=== PATIENT | female | born 1935 | race African-American/Black ===

== ENCOUNTER 2019-08-03 22:26 | Inpatient (IN) ==
[2019-08-03] MEDS ORDERED: hydrALAZINE 20 MG/1 ML VIAL IV STA (23:11)
[2019-08-03 23:37] LABS: ABG Base Excess 3.9 MMOL/L (-2.5-2.5); ABG HCO3 27.9 MMOL/L (20-26); ABG Oxygen Saturation 95.3 % (95-100); ABG PCO2 52.4 MM HG (35-48); ABG PH 7.371 (7.35-7.45); ABG PO2 67.1 MM HG (80-95); ABG TCO2 27.1 MMOL/L (23-27); Allen Test Positive
[2019-08-04 00:13] LABS: Basophils # 0.1 10*3/uL (0.0-0.2); Basophils % 0.7 % (0.0-0.8); Eosinophils # 0.3 10*3/uL (0.0-0.87); Eosinophils % 3.7 % (0.00-10.9); Hemoglobin 11.3 GM/DL (12.0-16.0); Immature Granulocytes % 0.6 %; Immature Granulocytes Absolute 0.05 #; Lymphocytes # 0.9 10*3/uL (1.4-4.0); Lymphocytes % 10.1 % (21.3-54.2); Mean Corpuscular HGB Conc 33.2 GM/DL (32-36); Mean Corpuscular Volume 79.4 FL (87-102); Mean Platelet Volume 10.2 FL (9.6-12.0); Monocytes % 8.9 % (1.7-12.7); Platelet Count 253 T/CUMM (130-400); Red Blood Count 4.28 MC/CUMM (3.8-5.5); Red Cell Distribution Width 15.2 % (9.3-17.3); White Blood Count 8.6 T/CUMM (4-12)
[2019-08-04 00:21] LABS: INR 1.1; PT Patient Result 11.6 SECS (9.6-12.2)
[2019-08-04 00:48] LABS: Albumin 2.8 G/DL (3.4-5.0); Bilirubin,Total 0.6 MG/DL (0.2-1.0); Calcium 8.7 MG/DL (8.5-10.1); Osmolality,Calculated 267.5 MOS/KG (273-304); Total Protein 7.1 G/DL (6.4-8.3)
[2019-08-04 01:31] LABS: Apearance,Urine Slightly Hazy (Clear); Bacteria,Urine Many /HPF (Few); Bilirubin,Urine Negative (Negative); Blood, Urine Negative (Negative); Glucose,Urine (UA) 50 mg/dL (Negative); Ketones,Urine 5 mg/dL (Negative); Nitrite,Urine Negative (Negative); Protein,Urine >=500 MG/DL; Squamous Epithelial Cell,Urine Occasional /HPF (0-10); Urine Color Yellow (Yellow); Urine Specific Gravity 1.017 (1.001-1.035); Urine Urobilinogen < 2.0 EU/DL (0.2-1.0)
[2019-08-04 04:10] LABS: ABG Base Excess 3.4 MMOL/L (-2.5-2.5); ABG HCO3 28.9 MMOL/L (20-26); ABG Oxygen Saturation 96.5 % (95-100); ABG PCO2 47.8 MM HG (35-48); ABG PH 7.399 (7.35-7.45); ABG PO2 78.9 MM HG (80-95); ABG TCO2 30.3 MMOL/L (23-27); Allen Test Positive; Pt O2 Delivery Device BIPAP
[2019-08-04] MEDS ORDERED: ONDANSETRON 4 MG/2 ML VIAL IV PRN (04:12)
[2019-08-04] MEDS ORDERED: MORPHINE 4 MG/1 ML VIAL IV PRN (04:12)
[2019-08-04] MEDS ORDERED: ACETAMINOPHEN 325 MG TABLET PO PRN (04:25)
[2019-08-04] MEDS ORDERED: GLUCAGON 1 MG VIAL IM PRN (04:26)
[2019-08-04] MEDS ORDERED: DEXTROSE 10% 250 ML BAG IV PRN (04:26)
[2019-08-04] MEDS: SODIUM CHLORIDE 0.9% 1,000 ML IV SCH (05:39)
[2019-08-04] MEDS ORDERED: AZITHROMYCIN INJ 250 MG in SODIUM CHLORIDE 0.9% 250 ML IV SCH (06:00)
[2019-08-04] MEDS: methylPREDNISolone SOD SUC 40 MG/1 ML VIAL IV SCH ×3 (06:09→20:50)
[2019-08-04] MEDS: AZITHROMYCIN INJ 250 MG in SODIUM CHLORIDE 0.9% 250 ML IV SCH (06:24)
[2019-08-04] MEDS: ALBUTEROL/IPRATROPIUM 3 ML NEB RESP TX SCH ×5 (07:54→23:18)
[2019-08-04] MEDS: INSULIN REGULAR 100 UNIT/ML SUBCUT SCH ×4 (08:23→21:18)
[2019-08-04] MEDS ORDERED: FUROSEMIDE 40 MG/4 ML VIAL IV SCH (09:00)
[2019-08-04] MEDS: ENOXAPARIN 40 MG/0.4 ML SYRINGE SUBCUT SCH (10:55)
[2019-08-04] MEDS: cefTRIAXone 2,000 MG in SYRINGE 1 EACH IV SCH (10:55)
[2019-08-04] MEDS: PANTOPRAZOLE 40 MG TABLET PO SCH (10:58)
[2019-08-04] MEDS: INSULIN GLARGINE 100 UNIT/ML SUBCUT SCH (16:58)
[2019-08-04] MEDS: DORNASE ALFA 2.5 MG/2.5 ML VIAL RESP TX SCH (20:06)
[2019-08-05] MEDS: ALBUTEROL/IPRATROPIUM 3 ML NEB RESP TX SCH ×6 (03:03→23:42)
[2019-08-05] MEDS: methylPREDNISolone SOD SUC 40 MG/1 ML VIAL IV SCH ×3 (05:44→21:30)
[2019-08-05] MEDS: AZITHROMYCIN INJ 250 MG in SODIUM CHLORIDE 0.9% 250 ML IV SCH (05:44)
[2019-08-05 05:49] LABS: Hematocrit 33.5 VOL% (35.7-47.0); Hemoglobin 11.1 GM/DL (12.0-16.0); Immature Granulocytes % 0.5 %; Immature Granulocytes Absolute 0.02 #; Lymphocytes # 0.2 10*3/uL (1.4-4.0); Lymphocytes % 5.4 % (21.3-54.2); Mean Corpuscular HGB Conc 33.1 GM/DL (32-36); Mean Corpuscular Volume 79.8 FL (87-102); Mean Platelet Volume 9.5 FL (9.6-12.0); Monocytes % 2.7 % (1.7-12.7); Neutrophils % 91.4 % (38.7-73.9); Platelet Count 234 T/CUMM (130-400); Red Cell Distribution Width 15.1 % (9.3-17.3); White Blood Count 4.1 T/CUMM (4-12)
[2019-08-05 06:01] LABS: Calcium 8.5 MG/DL (8.5-10.1); Osmolality,Calculated 276.2 MOS/KG (273-304)
[2019-08-05 06:02] LABS: Calcium 8.5 MG/DL (8.5-10.1); Osmolality,Calculated 275.4 MOS/KG (273-304)
[2019-08-05 06:24] LABS: Lymphocytes 1 % (20-55); Platelet Estimate Adequate; Segmented Neutrophils 96 % (50-85); Total Cells Counted 100
[2019-08-05 06:25] LABS: Hypochromasia 1+; Ovalocytes Slight
[2019-08-05] MEDS: SODIUM CHLORIDE 0.9% 1,000 ML IV SCH (08:00)
[2019-08-05] MEDS: INSULIN REGULAR 100 UNIT/ML SUBCUT SCH ×4 (09:43→21:30)
[2019-08-05] MEDS: PANTOPRAZOLE 40 MG TABLET PO SCH (09:43)
[2019-08-05] MEDS: ENOXAPARIN 40 MG/0.4 ML SYRINGE SUBCUT SCH (09:44)
[2019-08-05] MEDS: cefTRIAXone 2,000 MG in SYRINGE 1 EACH IV SCH (09:44)
[2019-08-05] MEDS: DORNASE ALFA 2.5 MG/2.5 ML VIAL RESP TX SCH ×2 (11:36→19:03)
[2019-08-05] MEDS ORDERED: FUROSEMIDE 40 MG/4 ML VIAL IV SCH (15:00)
[2019-08-05] MEDS: INSULIN GLARGINE 100 UNIT/ML SUBCUT SCH (17:20)
[2019-08-06] MEDS: ALBUTEROL/IPRATROPIUM 3 ML NEB RESP TX SCH ×6 (03:34→22:52)
[2019-08-06 05:12] LABS: Hematocrit 32.7 VOL% (35.7-47.0); Hemoglobin 10.8 GM/DL (12.0-16.0); Immature Granulocytes % 0.7 %; Immature Granulocytes Absolute 0.04 #; Lymphocytes # 0.2 10*3/uL (1.4-4.0); Lymphocytes % 3.6 % (21.3-54.2); Mean Corpuscular Volume 79.8 FL (87-102); Monocytes % 4.1 % (1.7-12.7); Neutrophils % 91.6 % (38.7-73.9); Platelet Count 243 T/CUMM (130-400); Red Cell Distribution Width 15.4 % (9.3-17.3)
[2019-08-06] MEDS: methylPREDNISolone SOD SUC 40 MG/1 ML VIAL IV SCH ×3 (05:35→21:33)
[2019-08-06 05:38] LABS: Calcium 8.6 MG/DL (8.5-10.1); Osmolality,Calculated 282.8 MOS/KG (273-304)
[2019-08-06 05:52] LABS: Hypochromasia Slight; Lymphocytes 6 % (20-55); Microcytosis 1+; Platelet Estimate Normal; Segmented Neutrophils 94 % (50-85); Total Cells Counted 100
[2019-08-06] MEDS: DORNASE ALFA 2.5 MG/2.5 ML VIAL RESP TX SCH ×3 (07:23→19:52)
[2019-08-06] MEDS: PANTOPRAZOLE 40 MG TABLET PO SCH (10:30)
[2019-08-06 10:34] LABS: RBC,Pleural Fluid 19305 T/CUMM
[2019-08-06] MEDS: INSULIN REGULAR 100 UNIT/ML SUBCUT SCH ×4 (11:27→21:34)
[2019-08-06 11:44] LABS: Lymphocytes,Pleural Fluid 95 %; Monocytes,Pleural Fluid 1 %; Neutrophils,Pleural Fluid 4 %
[2019-08-06] MEDS: cefTRIAXone 2,000 MG in SYRINGE 1 EACH IV SCH (12:28)
[2019-08-06] MEDS: AZITHROMYCIN INJ 250 MG in SODIUM CHLORIDE 0.9% 250 ML IV SCH (12:28)
[2019-08-06] MEDS: SODIUM CHLORIDE 0.9% 1,000 ML IV SCH (13:37)
[2019-08-06] MEDS: INSULIN GLARGINE 100 UNIT/ML SUBCUT SCH (16:31)
[2019-08-07] MEDS: ALBUTEROL/IPRATROPIUM 3 ML NEB RESP TX SCH ×6 (02:33→23:55)
[2019-08-07 03:26] LABS: Basophils % 0.1 % (0.0-0.8); Hematocrit 33.3 VOL% (35.7-47.0); Hemoglobin 10.7 GM/DL (12.0-16.0); Immature Granulocytes % 0.7 %; Immature Granulocytes Absolute 0.06 #; Lymphocytes # 0.3 10*3/uL (1.4-4.0); Lymphocytes % 3.6 % (21.3-54.2); Mean Corpuscular HGB Conc 32.1 GM/DL (32-36); Mean Corpuscular Volume 81.4 FL (87-102); Mean Platelet Volume 9.6 FL (9.6-12.0); Monocytes % 8.5 % (1.7-12.7); Neutrophils % 87.1 % (38.7-73.9); Platelet Count 236 T/CUMM (130-400); Red Blood Count 4.09 MC/CUMM (3.8-5.5); Red Cell Distribution Width 15.8 % (9.3-17.3)
[2019-08-07 03:41] LABS: Calcium 7.9 MG/DL (8.5-10.1); Osmolality,Calculated 280.4 MOS/KG (273-304)
[2019-08-07] MEDS: methylPREDNISolone SOD SUC 40 MG/1 ML VIAL IV SCH ×3 (06:00→21:53)
[2019-08-07] MEDS: DORNASE ALFA 2.5 MG/2.5 ML VIAL RESP TX SCH ×2 (07:10→19:32)
[2019-08-07] MEDS: INSULIN REGULAR 100 UNIT/ML SUBCUT SCH ×4 (07:31→21:54)
[2019-08-07] MEDS: ENOXAPARIN 40 MG/0.4 ML SYRINGE SUBCUT SCH (09:21)
[2019-08-07] MEDS: PANTOPRAZOLE 40 MG TABLET PO SCH (09:21)
[2019-08-07] MEDS: cefTRIAXone 2,000 MG in SYRINGE 1 EACH IV SCH (09:23)
[2019-08-07] MEDS: AZITHROMYCIN INJ 250 MG in SODIUM CHLORIDE 0.9% 250 ML IV SCH (09:28)
[2019-08-07] MEDS: INSULIN GLARGINE 100 UNIT/ML SUBCUT SCH (16:39)
[2019-08-08] MEDS: ALBUTEROL/IPRATROPIUM 3 ML NEB RESP TX SCH ×6 (03:22→23:49)
[2019-08-08 05:14] LABS: Hematocrit 34.6 VOL% (35.7-47.0); Hemoglobin 11.4 GM/DL (12.0-16.0); Immature Granulocytes % 1.4 %; Lymphocytes # 0.2 10*3/uL (1.4-4.0); Lymphocytes % 2.9 % (21.3-54.2); Mean Corpuscular HGB Conc 32.9 GM/DL (32-36); Mean Corpuscular Volume 80.7 FL (87-102); Mean Platelet Volume 9.6 FL (9.6-12.0); Monocytes % 2.6 % (1.7-12.7); Neutrophils % 93.1 % (38.7-73.9); Platelet Count 223 T/CUMM (130-400); Red Blood Count 4.29 MC/CUMM (3.8-5.5); Red Cell Distribution Width 16.1 % (9.3-17.3); White Blood Count 6.9 T/CUMM (4-12)
[2019-08-08 05:35] LABS: Calcium 8.1 MG/DL (8.5-10.1); Osmolality,Calculated 278.2 MOS/KG (273-304)
[2019-08-08 05:37] LABS: Hypochromasia 1+; Lymphocytes 3 % (20-55); Platelet Estimate Adequate; Segmented Neutrophils 95 % (50-85); Total Cells Counted 100
[2019-08-08] MEDS: methylPREDNISolone SOD SUC 40 MG/1 ML VIAL IV SCH ×3 (06:32→21:00)
[2019-08-08] MEDS: DORNASE ALFA 2.5 MG/2.5 ML VIAL RESP TX SCH ×2 (07:00→20:20)
[2019-08-08] MEDS: INSULIN REGULAR 100 UNIT/ML SUBCUT SCH ×4 (07:29→21:07)
[2019-08-08] MEDS: PANTOPRAZOLE 40 MG TABLET PO SCH (09:25)
[2019-08-08] MEDS: ENOXAPARIN 30 MG/0.3 ML SYRINGE SUBCUT SCH (09:26)
[2019-08-08] MEDS: cefTRIAXone 2,000 MG in SYRINGE 1 EACH IV SCH (09:26)
[2019-08-08] MEDS: AZITHROMYCIN INJ 250 MG in SODIUM CHLORIDE 0.9% 250 ML IV SCH (09:33)
[2019-08-08] MEDS: miSOPROStoL 200 MCG TABLET PO SCH ×3 (12:29→21:00)
[2019-08-08] MEDS ORDERED: MEROPENEM 2,000 MG in SODIUM CHLORIDE 0.9% 100 ML IV SCH (16:30)
[2019-08-08] MEDS: INSULIN GLARGINE 100 UNIT/ML SUBCUT SCH (17:21)
[2019-08-08] MEDS: SODIUM CHLORIDE 0.9% 1,000 ML IV SCH (17:21)
[2019-08-08] MEDS: MEROPENEM 500 MG in SODIUM CHLORIDE 0.9% 100 ML IV SCH (17:22)
[2019-08-08] MEDS: LINEZOLID INJ 600 MG in PREMIX 1 EACH IV SCH (21:01)
[2019-08-09] MEDS: MEROPENEM 500 MG in SODIUM CHLORIDE 0.9% 100 ML IV SCH ×2 (00:32→06:03)
[2019-08-09] MEDS: ALBUTEROL/IPRATROPIUM 3 ML NEB RESP TX SCH ×2 (03:18→07:36)
[2019-08-09 04:51] LABS: Hemoglobin 12.3 GM/DL (12.0-16.0); Immature Granulocytes % 1.4 %; Immature Granulocytes Absolute 0.11 #; Lymphocytes # 0.2 10*3/uL (1.4-4.0); Lymphocytes % 2.5 % (21.3-54.2); Mean Corpuscular HGB Conc 32.4 GM/DL (32-36); Mean Platelet Volume 9.2 FL (9.6-12.0); NRBC # 0.03 10*3/uL; Neutrophils % 91.1 % (38.7-73.9); Platelet Count 268 T/CUMM (130-400); Red Blood Count 4.69 MC/CUMM (3.8-5.5); Red Cell Distribution Width 16.3 % (9.3-17.3); White Blood Count 7.9 T/CUMM (4-12)
[2019-08-09 05:15] LABS: Hypochromasia 1+; Lymphocytes 2 % (20-55); Platelet Estimate Adequate; Segmented Neutrophils 93 % (50-85); Total Cells Counted 100
[2019-08-09 05:18] LABS: Albumin 3.2 G/DL (3.4-5.0); Calcium 8.4 MG/DL (8.5-10.1); Osmolality,Calculated 283.2 MOS/KG (273-304)
[2019-08-09] MEDS: methylPREDNISolone SOD SUC 40 MG/1 ML VIAL IV SCH (06:03)
[2019-08-09 07:20] LABS: ABG Base Excess -8.1 MMOL/L (-2.5-2.5); ABG HCO3 17.8 MMOL/L (20-26); ABG Oxygen Saturation 90.3 % (95-100); ABG PO2 73.5 MM HG (80-95); ABG TCO2 26.8 MMOL/L (23-27)
[2019-08-09 07:22] LABS: ABG PH 7.004 (7.35-7.45)
[2019-08-09] MEDS: DORNASE ALFA 2.5 MG/2.5 ML VIAL RESP TX SCH (07:36)
[2019-08-09 08:05] LABS: Calcium 7.8 MG/DL (8.5-10.1); Osmolality,Calculated 280.7 MOS/KG (273-304)
[2019-08-09] MEDS: INSULIN REGULAR 100 UNIT/ML SUBCUT SCH (09:16)
[2019-08-09] MEDS: ENOXAPARIN 30 MG/0.3 ML SYRINGE SUBCUT SCH (09:24)
[2019-08-09] MEDS ORDERED: MORPHINE 4 MG/1 ML VIAL IV PRN (10:29)
[2019-08-09] MEDS: LINEZOLID INJ 600 MG in PREMIX 1 EACH IV SCH (10:58)
[2019-08-09] MEDS: SODIUM CHLORIDE 0.9% 1,000 ML IV SCH ×3 (10:58→11:00)
[2019-08-09] MEDS ORDERED: LORazepam 2 MG/1 ML VIAL IV PRN (10:58)
[2019-08-09] MEDS: miSOPROStoL 200 MCG TABLET PO SCH (10:58)
[2019-08-09] MEDS: PANTOPRAZOLE 40 MG TABLET PO SCH (10:59)
[2019-08-09] MEDS: AZITHROMYCIN INJ 250 MG in SODIUM CHLORIDE 0.9% 250 ML IV SCH (10:59)
[2019-08-09] MEDS: MORPHINE 4 MG/1 ML VIAL IV PRN ×3 (11:06→12:25)
[2019-08-09 16:10] VITALS: BP 63/33
[2019-08-12 09:06] LABS: Source PLEURAL FLUID
== END 2019-08-09 15:44 | disposition expired | DRG 189 ==
LOC: EDBD → EDUNIT# → N.ED 22:26 → N.EDINP 08-04 04:12 → N.2E 08-04 04:50 → N.CC 08-09 07:12 → N.2E 08-09 10:54
PROVIDERS: ADMIT Internal Medicine; ATTEND Internal Medicine
PROC: IRTHORA (2019-08-06 08:35)